=== PATIENT | male | born 1995 | race Caucasian/White ===

== ENCOUNTER 2017-02-21 15:40 | Emergency (ER) | payer OTHER ==
[~2017-02-21] VITALS: Ht 188 cm; Wt 70.5 kg
[2017-02-21 16:10] VITALS: BP 116/66; PULSE 98; RESP 18; O2SAT 99
--- NOTE | 2017-02-21 16:18 | ED.REPORT ---
HPI- Male Date of Service Feb 21, 2017 ED Provider: Román Baumann MD Pt is an otherwise healthy 21 year old male who presents to the ED complaining of intermittent right testicular pain onset 3 days ago. He c/o associated mild right testicle swelling and nausea. He denies fever, discharge, penile swelling , and dysuria. His pain is exacerbated with walking. The pt presented to the [facility] 3 days ago, but he reports that his pain was resolved upon his arrival at the hospital. Per pt, his initial episode of pain lasted 10 hours. Pt states that an US and urinalysis were conducted. Upon feeling the pain today , he called the [facility] and was referred to the ED for further evaluation. His last episode of testicular pain was prior to arrival, which he rates as a 3/10. He reports that his pain is rated 9/10 at its worst. Nursing Notes Stated Complaint: TESTICULAR PAIN Chief Complaint: Male Abdominal Pain Nursing Notes Reviewed: Yes ([employer], meds not reconciled) Allergies: Coded Allergies: guaifenesin (Verified Allergy, Mild, HALLUCINATIONS, 02/21/17) General Time Seen by MD: 16:17 Chief Complaint Testicle painful right Hx Obtained From: Patient Arrived By: Walk-in Onset Occurred: 3 days ago Symptom Duration: Intermittent Location: : Testicle right Quality: Painful Severity: Current: No pain currently Severity: Maximum: Pain level 9 out of 10 Recent Healthcare: Recent doctor visit Similar Sx Previous: No Past Medical History Past Medical History None reported - healthy Past Surgical History None reported Smoking History Unknown if Ever Smoker Social History Lives at [facility] Other Social History: Good social support Ambulatory Status Independent Review of Systems Denies penile swelling Constitutional: Denies: Fever GI: Reports: Nausea Male: Reports Testicular pain, Reports Testicular swelling (mild), Denies Dysuria, Denies Penile discharge Complete sys rev & neg: except as marked. Physical Exam Initial Vital Signs Vital Signs (First) Date Time Temp Pulse Resp B/P Pulse Ox O2 Delivery O2 Flow Rate FiO2 02/21/17 16:10 36.6 98 18 116/66 99 Room Air Initial VS: Reviewed, Vital signs normal Head / Eyes: Atraumatic, Normocephalic Neck: Supple, Full range of motion Respiratory: Breath sounds normal, Clear to auscultation, No respiratory distress Cardiovascular: Regular rate & rhythm, Heart sounds normal, Intact distal pulses Abdomen / GI: Soft, Non-tender Extremities: Vascular intact, Neuro intact Skin: Warm, Dry, No cyanosis Neurologic: Alert, Oriented, Nonfocal Psychiatric: Mood/affect normal, Behavior normal Male Genitourinary: Inspection NL, Penis NL, Testes NL, Cremasteric reflex NL, Epididymis NL, No mass, Scrotal/perineal skin NL General/Constitutional: Awake, Alert Interpretation & Diagnostics Interpretation & Diagnostics: Records obtained from [facility] indicate scrotal ultrasound was normal, no findings radiographically of torsion, UA was normal Re-Eval/Medical Decision Med Decision/Clinical Course This is a 21-year-old male slipping on [place]BLE and referred in from [facility] for episodic testicular pain. Patient reports that about 3 days ago he was awoken from sleep with an acute 9 out of 10 severe scrotal pain, and was on [place]BLE, and went to [facility]-but his symptoms resolved as presented to the ED. He had an ultrasound that was normal, and a UA that was normal. His discharge. He has had several small bouts of acute testicular pain the bit shorter duration-episode several days ago lasted numerous hours, it is worse and occurs intermittently with more activity. However he is not having a severe discomfort. He had another episode this morning, it has resolved.Here in the department he has no pain or discomfort. He was maybe a little bit of swelling on the initial day, but has had none since. He denies dysuria, fever or infectious symptoms. Department he has normal vitals, and a normal physical exam with a normal testicular exam. There is no swelling, there is normal lie, normal cremasteric reflex. Differential includes intermittent torsion. I discussed the case with the urologist, but given the patient's entirely asymptomatic and has a normal exam, he indicates is no indication for repeat ultrasound at this time, close follow- up with urology is what is recommended. So because the patient lives on the [place], weeks. We will set the patient up hopefully be seen the next day at the urology clinic, and the patient will [facility] [place] so that if he has further episodes of pain or new worsening symptoms he can return. In the meantime supportive care for possible orchitis is reviewed, with the patient that to wear briefs rather than boxers, ice, NSAIDs. The patient is comfortable with this plan and is discharged in stable condition. Routine return precautions reviewed. Source of Hx: Old records Re-Evaluation/Progress #1: Time of Eval: 17:30 Re-Evaluation/Progress Note: Pt rechecked. Informed pt of plan for OR tomorrow. All questions addressed. Re-Evaluation/Progress #2: Time of Eval: 18:15 Re-Evaluation/Progress Note: Pt rechecked. Informed pt of plan for discharge. Pt understands and agrees with plan for discharge. F/U instructions and RTER warnings given. All questions addressed. Consultation #1: Referral / Consult Name: Nik Robles MD Call Returned at: 17:16 Physician Relations Manager: Agrees with eval, Agrees with plan Note: Consulted with Urology. Discussed pt's case. The pt will not need a repeat US. They won't take him into the OR tonight, but will try to get the pt in tomorrow. Consultation #2: Call Returned at: 17:30 Note: Consulted with [facility]. Discussed potential to get a bed at [place] for pt to stay at until tomorrow. Differential Diagnosis: Negative: Abrasion, Abscess, Adhesions-foreskin, Bladder outlet obstruct, Contusion, Cystitis, acute, Epididymitis, Wesley's gangrene Counseled Regarding: Diagnosis, Lab results Discharge & Departure Impression: Primary Impression: Testicular pain, right Disposition: Home Discharge Condition All VS Reviewed: Yes Condition: Stable Additional Instructions: 1. Given the off/on recurent nature of the pain the question is whether or not your symptoms represent an intermittant torsion vs an orchitis. 2. The next step is evaluation by urologist. I have discussed your case with Dr. Robles and he is working to get you in tomorrow at his office. He indicates you should here from the office by 9am (if you do not hear from them for any reason, call his office at 9am and explain to them you were seen in the ED and that we talked to Dr. Robles.) 3. In the meantime we recommend wearing supportive underwear (not boxers), taking ibuprofen 800mg three times a day for pain, and using ice if needed. (If pain re-occurs sharply/severe - return directly to the ED) 4. Tonight you can stay at the [facility]. Referrals: Nik Robles MD [facility] Scribe Attestation Portions of this note were transcribed by Naomi Mathew. I, Dr. Baumann personally performed the history, physical exam and medical decision-making; I reviewed and confirmed the accuracy of the information in the transcribed note. Signed by: Simone Marie, 02/21/17. copies to: Nik Robles MD; [facility] Román Baumann MD Feb 21, 2017 16:18 Naomi Gross Feb 21, 2017 16:29
[2017-02-21 19:00] VITALS: BP 123/60; PULSE 82; RESP 16
== END 2017-02-21 19:00 | disposition home or self-care (01) ==
LOC: SED 15:40
DX: N50.811 Right testicular pain (principal)